=== PATIENT | female | born 1970 | race Caucasian/White ===

== ENCOUNTER → 2017-02-14 | Outpatient (CLI) | payer MEDICARE ==
[~2017-02-14] MED LIST: BACTRIM DS 8001 TAB PO; LISINOPRIL 20MG20 MG PO; METOPROLOL SUCC50 M1 PO; NEURONTIN100 MG PO; PREDNISONE50 MG PO
--- NOTE | 2017-02-14 23:31 | RADIOLOGY REPORT PS360 ---
KNEE-3 VIEWS-RT HISTORY: Right knee pain FALL, RT KNEE PAIN ORDERING PHYSICIAN: Benoit Bach MD PATIENT AGE: 47 years COMPARISON: None FINDINGS: No fracture or dislocation. No lytic or blastic change. Normal mineralization. No significant arthritic changes evident. No other significant findings IMPRESSION: Negative Knee
== END ==
LOC: RAD 17:38
DX: M25.561 Pain in right knee (principal)

== ENCOUNTER → 2017-03-05 | Outpatient (CLI) | payer MEDICARE | LOC: LAB 10:54 | DX: R07.1 Chest pain on breathing (principal); I10 Essential (primary) hypertension ==

== ENCOUNTER → 2017-03-14 | Outpatient (CLI) | payer MEDICARE ==
--- NOTE | 2017-03-14 16:33 | RADIOLOGY REPORT PS360 ---
US AORTA (RETROPERITONEAL) HISTORY: Evaluate for aortic aneurysm, elevated blood pressure CHEST PAIN, PULSATILE AORTA ORDERING PHYSICIAN: Jameson Gould MD PATIENT AGE: 47 years COMPARISON: None FINDINGS: General survey is performed of the abdominal aorta showing no evidence of a new areas of. No areas of evident in the proximal colon iliacs. IMPRESSION: Negative for abdominal aortic aneurysm
--- NOTE | 2017-03-15 15:09 | RADIOLOGY REPORT PS360 ---
SPECT MYOCARDIAL PERFUSION SCAN, REST AND STRESS: EXERCISE STRESS: [facility] REVIEW QGS EF AND WALL MOTION EVALUATION: QPS - PERFUSION EVALUATION: HISTORY: Chest pain PROCEDURE: Rest imaging performed after administration of10.82 milicuries Tc MIBI. Dose SPECT MYOCARDIAL PERFUSION SCAN, REST AND STRESS: EXERCISE STRESS: Stress imaging was then performed following9 minutes 30 seconds of exercise stress. The patient achieved a heart [id number] with projected heart rate of146 . Resting BP158/81 with stress 170/78. At maximum exercise stress,31.6 millicuries Tc MIBI administered at8:25 a.m. with [id number] minutes thereafter. FINDINGS: Perfusion Evaluation: The single slice spect images as well as the [facility] bull's-eye data summary were reviewed. Stress images reveal mildly decreased activity in the anterior wall with no significant change on rest images. Gated images calculated ejection fraction is 67% with normal wall motion Impression: Anterior rest and stress defect is most consistent with breast attenuation. Patient exercised 9 minutes 30 seconds on standard Yuan protocol with normal EKG response and no associated chest pain. Normal ejection fraction and normal wall motion.
--- NOTE | 2017-03-15 15:09 | RADIOLOGY REPORT PS360 ---
SPECT MYOCARDIAL PERFUSION SCAN, REST AND STRESS: EXERCISE STRESS: [facility] REVIEW QGS EF AND WALL MOTION EVALUATION: QPS - PERFUSION EVALUATION: HISTORY: Chest pain PROCEDURE: Rest imaging performed after administration of10.82 milicuries Tc MIBI. Dose SPECT MYOCARDIAL PERFUSION SCAN, REST AND STRESS: EXERCISE STRESS: Stress imaging was then performed following9 minutes 30 seconds of exercise stress. The patient achieved a heart [id number] with projected heart rate of146 . Resting BP158/81 with stress 170/78. At maximum exercise stress,31.6 millicuries Tc MIBI administered at8:25 a.m. with minutes thereafter. FINDINGS: Perfusion Evaluation: The single slice spect images as well as the [facility] bull's-eye data summary were reviewed. Stress images reveal mildly decreased activity in the anterior wall with no significant change on rest images. Gated images calculated ejection fraction is 67% with normal wall motion Impression: Anterior rest and stress defect is most consistent with breast attenuation. Patient exercised 9 minutes 30 seconds on standard Yuan protocol with normal EKG response and no associated chest pain. Normal ejection fraction and normal wall motion.
== END ==
LOC: RAD 06:22
DX: R07.9 Chest pain, unspecified (principal)
CPT/HCPCS: A9502

== ENCOUNTER → 2017-05-12 | Outpatient (CLI) | payer MEDICARE ==
--- NOTE | 2017-05-15 10:24 | RADIOLOGY REPORT PS360 ---
DIG MAMM-SCREEN KARISHMA W/CAD CAD Screening COMPARISON: Digital mammograms 05/02/2015 and 05/04/2016 INDICATION: There is no personal or family history of breast cancer TECHNIQUE: Standard CC and MLO images were obtained. R2 CAD reviewed. FINDINGS: There is a diffusely dense and heterogenic parenchymal pattern somewhat lessening the sensitivity of mammography. There is no new or suspicious lesion in either breast and there are no suspicious microcalcifications. There are couple benign-appearing calcification central portion of the right breast. IMPRESSION: Diffusely dense parenchymal pattern with no suspicious lesion seen recommend yearly follow-up BI-RADS CATEGORY: 2_Benign RECOMMENDED FOLLOWUP: 12M 12 MONTH FOLLOW-UP (A letter has been sent to the patient regarding results of the study.)
== END ==
LOC: RAD 08:53
DX: Z12.31 Encounter for screening mammogram for malignant neoplasm of breast (principal)
CPT/HCPCS: G0202